=== PATIENT | female | born 1995 | race Hispanic/Latino ===

== ENCOUNTER 2023-09-02 18:49 | Observation (INO) | payer MEDICAID ==
[~2023-09-02] VITALS: Ht 162.6 cm; Wt 65.3 kg
[2023-09-02 19:16] VITALS: BP 115/71; PULSE 72; RESP 20
[2023-09-02 20:08] LABS: APPEARANCE,URINE CLEAR (CLEAR); BILIRUBIN,URINE NEGATIVE (NEGATIVE); COLOR,URINE YELLOW (YELLOW); GLUCOSE, URINE (UA) NEGATIVE (NEGATIVE); KETONES,URINE 150 mg/dL (NEGATIVE); LEUKOCYTE ESTERASE ,URINE NEGATIVE Leu/uL (NEGATIVE); NITRATE,URINE NEGATIVE (NEGATIVE); OCCULT BLOOD,URINE NEGATIVE (NEGATIVE); PH,URINE 8.5 (5.0-8.0); PROTEIN,URINE 70 mg/dL (NEGATIVE)
[2023-09-02 20:09] LABS: ADD UA MICROSCOPIC YES
[2023-09-02 20:12] LABS: BACTERIA,URINE RARE /HPF (None Seen); MUCUS,URINE RARE LPF (None Seen); RBC,URINE 0-1 /HPF (0-1); SQUAMOUS EPITHELIAL CELL,UR MOD /HPF (0-2); WBC,URINE 0-1 /HPF (0-1)
[2023-09-02] MEDS: LACTATED RINGERS 1000ML 1,000 ML IV PRN (20:20)
[2023-09-02] MEDS: PROMETHAZINE HCL 25 MG/ML 1ML AMPULE IM PRN (21:47)
[2023-09-02] MEDS: MEPERIDINE-PF 50 MG/ML SYG IVP PRN (21:48)
[2023-09-02 22:27] LABS: MEAN CORPUSCULAR HEMOGLOBIN 31.6 pg (27.0-33.0); MEAN CORPUSCULAR HGB CONC 34.2 g/dL (32.0-36.0); MEAN CORPUSCULAR VOLUME 92.5 fL (79-99); RED BLOOD CELL COUNT(AUTO) 3.89 MIL/uL (4.00-5.50); RED CELL DISTRIBUTION WIDTH 12.4 % (11.0-15.5); WHITE BLOOD COUNT (AUTO) 12.3 K/uL (4.8-10.8)
[2023-09-02 23:02] LABS: HIV 1&2 ANTIBODY Non-Reactive (Negative)
[2023-09-02 23:03] LABS: HIV-1 p24 Antigen Non-Reactive (Negative)
[2023-09-03] MEDS ORDERED: LACTATED RINGERS 1000ML 1,000 ML IV SCH (01:00)
[2023-09-04 11:34] LABS: RAPID PLASMA REAGIN NONREACTIVE (NONREACTIVE)
== END 2023-09-03 08:05 | disposition home or self-care (01) ==
LOC: EDH 18:49 → LDH 19:44
PROVIDERS: ADMIT Obstetrics & Gynecology; ATTEND Obstetrics & Gynecology
DX: O26.893 Other specified pregnancy related conditions, third trimester (principal); R10.9 Unspecified abdominal pain; Z3A.36 36 weeks gestation of pregnancy
CPT/HCPCS: 96374; 96372 ×2; 96361 ×3; 85027; 86592; 86850; 86900; 86901; 87340; 86701; 87390; 81001; 36415; 96376; G0378 ×10; J2550 ×2; J2175 ×2; 96360; 96375